=== PATIENT | male | born 1965 | race Caucasian/White ===

== ENCOUNTER 2017-07-05 13:23 | Emergency (ER) | payer BC ==
[~2017-07-05] VITALS: Ht 177.8 cm; Wt 101.2 kg
[2017-07-05 13:26] VITALS: TEMP 36.8; Ht 177.8 cm; Wt 101.2 kg
[2017-07-05] MEDS ORDERED: SODIUM CHLORIDE 0.9% 1000ML 1,000 ML IV STA (13:43)
[2017-07-05] MEDS ORDERED: SODIUM CHLORIDE 0.9% 1000ML 500 ML IV STA (13:43)
--- NOTE | 2017-07-05 13:46 | EMERGENCY ROOM VISIT NOTE ---
History Report prepared by Miller: Nato Espinal Under the Supervision of: Dr. Tim Villalobos M.D. First contact with patient: 13:35 Chief Complaint: GI ASSESSMENT Stated Complaint: BLOOD IN STOOL, NO ENERGY, TIRED History of Present Illness The patient is a 52 year old male who presents to the Emergency Room with complaints of a persistent illness that started a week ago. He says that he started with abdominal pain 2 weeks ago, and then he started feeling fatigued without energy this past week. He adds that he has had some blood in his stool the past 5 days. The patient states that the stool has been brownish with chunks , and there is blood in the toilet as well as with wiping. He says that he has a history of blood in his stool, but it has never been persistent. He adds that he has been falling asleep in the middle of the day. The patient says that he has no pain with bowel movements. The patient notes that he has been unable to eat much due to his abdominal pain. He denies any recent cold symptoms, including cough or congestion. He says that he is not on a blood thinner. The patient notes a history of a cholecystectomy. Source of History: patient Onset: A week ago Position: other (global - illness) Timing: other (persistent) Associated Symptoms: + abdominal pain, + hematochezia, + fatigue, No cough Note: Associated symptoms: Denies old symptoms, congestion. Denies pain with bowel movements. Review of Systems See HPI for pertinent positives & negatives. A total of 10 systems reviewed and were otherwise negative. Past Medical & Surgical Medical Problems: (1) No chronic diseases present Surgical Problems: (1) History of cholecystectomy Family History No pertinent family history Social History Smoking Status: Never Smoker Alcohol Use: none Housing Status: lives with family Occupation Status: employed Current/Historical Medications No Active Prescriptions or Reported Meds Allergies Coded Allergies: No Known Allergies (Unverified , 07/05/17) Physical Exam Vital Signs Date Time Temp Pulse Resp B/P (MAP) Pulse Ox O2 Delivery O2 Flow Rate FiO2 07/05/17 18:42 88 16 137/98 98 07/05/17 17:47 70 16 154/89 98 Room Air 07/05/17 16:12 69 16 151/91 98 Room Air 07/05/17 14:20 52 145/100 97 Room Air 07/05/17 13:26 36.8 68 20 157/99 96 Room Air Physical Exam GENERAL: Patient is in no acute distress. HEENT: No acute trauma, normocephalic atraumatic, mucous membranes moist, no nasal congestion, no scleral icterus. NECK: No stridor, no adenopathy, no meningismus, trachea is midline. LUNGS: Clear to auscultation bilaterally, no wheeze, no rhonchi, breath sounds equal. HEART: Without murmurs gallops or rubs, regular rate and rhythm. ABDOMEN: Mildly tender just to the left of the umbilicus. Soft, bowel sounds positive, no hernias, no peritonitis. EXTREMITIES: No cyanosis or edema, full range of motion of all the joints without pain or difficulty, no signs for acute trauma. RECTAL: No external source for bleeding. Digital exam reveals brown stool which is slightly heme positive. NEUROLOGIC: Oriented x 3, no acute motor or sensory deficits, no focal weakness. SKIN: No rash, no jaundice, no diaphoresis. Medical Decision & Procedures ER Provider Diagnostic Interpretation: CT results as stated below per my review and radiologist interpretation: ABD/PELVIS IV AND ORAL CONT CLINICAL HISTORY: 52 years-old Male presenting with ABDOMINAL PAIN/GI--?DIVERTICULITIS--GIVE PO AND IV CONTRAST. TECHNIQUE: Multidetector CT of the abdomen and pelvis was performed after the administration of intravenous contrast. IV contrast: 118 mL of Optiray 320. A dose lowering technique was used consistent with the principles of ALARA (as low as reasonably achievable). COMPARISON: None. CT DOSE (mGy.cm): The estimated cumulative dose is 775.03 mGy.cm. FINDINGS: Line Person topogram: 2 screw fixation across the right sacroiliac joint and left total hip arthroplasty noted. Lung bases: Lung bases clear. Normal heart size. No pericardial or pleural effusion. 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 No liver lesion. Patent hepatic vasculature. Biliary: No intrahepatic or extrahepatic biliary ductal dilatation. Gallbladder surgically absent. Pancreas: Mild parenchymal atrophy. Spleen: Normal. Adrenal glands: Normal. Kidneys and ureters: Normal. No hydronephrosis. Bladder: Normal. Pelvic organs: Prostate and seminal vesicles normal. Bowel: Normal appendix. No bowel obstruction. Two diverticula are noted at the junction of the descending and sigmoid colon without evidence of associated inflammation. Peritoneal cavity: No free fluid or intraperitoneal gas. Vasculature: Atherosclerosis of the normal caliber abdominal aorta. IVC patent. Lymph nodes: No enlarged lymph nodes in the abdomen or pelvis. Abdominal wall: Normal. Musculoskeletal: Total left hip arthroplasty without evidence of hardware complication. 2 screw fixation across the right sacroiliac joint. Minimal degenerative change of the lumbar spine. IMPRESSION: 1. No acute intra-abdominal pathology. 2. Limited diverticulosis of the junction of the descending and sigmoid colon without evidence of diverticulitis. Electronically signed by: David Duke M.D. 07/05/2017 5:43 PM Dictated Date/Time: 07/05/2017 5:37 PM Laboratory Results 07/05/17 13:49 Red Blood Count 4.89, Mean Corpuscular Volume 83.4, Mean Corpuscular Hemoglobin 29.7, Mean Corpuscular Hemoglobin Concent 35.5, Mean Platelet Volume 9.0, Neutrophils (%) (Auto) 68.4, Lymphocytes (%) (Auto) 22.2, Monocytes (%) (Auto) 6.9, Eosinophils (%) (Auto) 1.9, Basophils (%) (Auto) 0.3, Neutrophils # (Auto) 4.24, Lymphocytes # (Auto) 1.38, Monocytes # (Auto) 0.43, Eosinophils # (Auto) 0.12, Basophils # (Auto) 0.02 07/05/17 13:49 Test 07/05/17 13:49 White Blood Count 6.21 K/uL (4.8-10.8) Red Blood Count 4.89 M/uL (4.7-6.1) Hemoglobin 14.5 g/dL (14.0-18.0) Hematocrit 40.8 % (42-52) Mean Corpuscular Volume 83.4 fL (80-100) Mean Corpuscular Hemoglobin 29.7 pg (25-34) Mean Corpuscular Hemoglobin Concent 35.5 g/dl (32-36) Platelet Count 210 K/uL (130-400) Mean Platelet Volume 9.0 fL (7.4-10.4) Neutrophils (%) (Auto) 68.4 % Lymphocytes (%) (Auto) 22.2 % Monocytes (%) (Auto) 6.9 % Eosinophils (%) (Auto) 1.9 % Basophils (%) (Auto) 0.3 % Neutrophils # (Auto) 4.24 K/uL (1.4-6.5) Lymphocytes # (Auto) 1.38 K/uL (1.2-3.4) Monocytes # (Auto) 0.43 K/uL (0.11-0.59) Eosinophils # (Auto) 0.12 K/uL (0-0.5) Basophils # (Auto) 0.02 K/uL (0-0.2) RDW Standard Deviation 39.7 fL (36.4-46.3) RDW Coefficient of Variation 13.2 % (11.5-14.5) Immature Granulocyte % (Auto) 0.3 % Immature Granulocyte # (Auto) 0.02 K/uL (0.00-0.02) Prothrombin Time 10.7 SECONDS (9.0-12.0) Prothromb Time International Ratio 1.0 (0.9-1.1) Activated Partial Thromboplast Time 28.2 SECONDS (21.0-31.0) Partial Thromboplastin Ratio 1.1 Anion Gap 7.0 mmol/L (3-11) Est Creatinine Clear Calc Drug Dose 105.2 ml/min Estimated GFR () 101.8 Estimated GFR (Non- 87.8 BUN/Creatinine Ratio 6.5 (10-20) Calcium Level 9.5 mg/dl (8.5-10.1) Total Bilirubin 0.4 mg/dl (0.2-1) Aspartate Amino Transf (AST/SGOT) 22 U/L (15-37) Alanine Aminotransferase (ALT/SGPT) 26 U/L (12-78) Alkaline Phosphatase 67 U/L (45-117) Total Protein 7.3 gm/dl (6.4-8.2) Albumin 3.8 gm/dl (3.4-5.0) Globulin 3.5 gm/dl (2.5-4.0) Albumin/Globulin Ratio 1.1 (0.9-2) Lipase 189 U/L (73-393) Thyroid Stimulating Hormone (TSH) 0.924 uIu/ml (0.300-4.500) Laboratory results reviewed by me. Medications Administered Medications (Trade) Dose Ordered Sig/Francisca Route Start Time Stop Time Status Last Admin Dose Admin Sodium Chloride 500 ml @ 999 mls/hr Q31M STAT IV 07/05/17 13:43 07/05/17 14:13 DC 07/05/17 13:43 999 MLS/HR Sodium Chloride 1,000 ml @ 200 mls/hr Q5H STAT IV 07/05/17 13:43 07/05/17 18:42 DC 07/05/17 13:43 200 MLS/HR ED Course 1335: The patient was evaluated in room A11B. A complete history and physical exam was performed. 1343: Ordered NSS 1000 ml @ 200 mls/hr IV, NSS 500 ml @ 999 mls/hr IV. 1802: Reevaluated the patient and he got a little nauseated and sweaty, but he says that he has not eaten since yesterday. He will eat and I will check back on him after. 1830: I reevaluated the patient and he is ready to go home. The patient verbally expressed understanding and agreement of the treatment plan. The patient will be discharged. Medical Decision Differential diagnosis includes but is not limited to hemorrhoidal or rectal bleeding, lower GI bleeding, upper GI bleeding, anemia, electrolyte imbalance, intestinal mass. There is no leukocytosis or concerning anemia. No significant electrolyte abnormality, kidney failure or hepatitis. No evidence for pancreatitis. The patient appears to be in a euthyroid state. Abdominal and pelvis CT does not show any diverticulitis or intestinal mass. No bowel obstruction. On exam, there were no hemorrhoids present externally. Rectal exam revealed brown stool that was trace heme positive. The patient presents with rectal bleeding, he feels fatigued. At this point, no concerning findings have been noted. The patient was referred to GI, he does need a colonoscopy. He understands. He was encouraged to return for worsening symptoms, heavier bleeding or fever. Medication Reconcilliation Current Medication List: was personally reviewed by me Blood Pressure Screening Patient's blood pressure: Elevated blood pressure Blood pressure disposition: Elevated BP felt to be situational Impression Primary Impression: Rectal bleeding Scribe Attestation The scribe's documentation has been prepared under my direction and personally reviewed by me in its entirety. I confirm that the note above accurately reflects all work, treatment, procedures, and medical decision making performed by me. Departure Information Dispostion Home / Self-Care Prescriptions No Active Prescriptions or Reported Meds Referrals No Doctor, Assigned (PCP) Faith Puente M.D. Patient Instructions My [facility] Additional Instructions talk with a GI doctor for an appt and possible colonoscopy return for fever, worsening pain, vomiting or heavier bleeding lab testing and imaging was ok
[2017-07-05 14:03] LABS: BASO % 0.3 %; BASO ABS # 0.02 K/uL (0-0.2); COMPLETE YES; EOS % 1.9 %; HEMATOCRIT 40.8 % (42-52); IG% 0.3 %; LYMPH % 22.2 %; LYMPH ABS # 1.38 K/uL (1.2-3.4); MEAN CELL VOLUME 83.4 fL (80-100); MEAN CORPUSCULAR HEMOGLOBIN 29.7 pg (25-34); MEAN CORPUSCULAR HGB CONC 35.5 g/dl (32-36); MONO % 6.9 %; NEUT % 68.4 %; PLATELET COUNT 210 K/uL (130-400); RED BLOOD COUNT 4.89 M/uL (4.7-6.1); WHITE BLOOD COUNT 6.21 K/uL (4.8-10.8)
[2017-07-05 14:13] LABS: PARTIAL THROMBOPLASTIN RATIO 1.1; PROTHROMBIN TIME (PATIENT) 10.7 SECONDS (9.0-12.0)
[2017-07-05 14:21] LABS: BUN/CREATININE RATIO 6.5 (10-20); CALCIUM 9.5 mg/dl (8.5-10.1); CREATININE 0.99 mg/dl (0.60-1.40); POTASSIUM 3.7 mmol/L (3.5-5.1)
[2017-07-05] MEDS ORDERED: OPTIRAY 320 IV PRN (14:30)
[2017-07-05 14:32] LABS: ALB/GLOB RATIO 1.1 (0.9-2); THYROID STIMULATING HORMONE 0.924 uIu/ml (0.300-4.500)
--- NOTE | 2017-07-05 17:44 | DIAGNOSTIC IMAGING REPORT ---
ABD/PELVIS IV AND ORAL CONT CLINICAL HISTORY: 52 years-old Male presenting with ABDOMINAL PAIN/GI--?DIVERTICULITIS--GIVE PO AND IV CONTRAST. TECHNIQUE: Multidetector CT of the abdomen and pelvis was performed after the administration of intravenous contrast. IV contrast: 118 mL of Optiray 320. A dose lowering technique was used consistent with the principles of ALARA (as low as reasonably achievable). COMPARISON: None. CT DOSE (mGy.cm): The estimated cumulative dose is 775.03 mGy.cm. FINDINGS: Blood Coordinator topogram: 2 screw fixation across the right sacroiliac joint and left total hip arthroplasty noted. Lung bases: Lung bases clear. Normal heart size. No pericardial or pleural effusion. 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 No liver lesion. Patent hepatic vasculature. Biliary: No intrahepatic or extrahepatic biliary ductal dilatation. Gallbladder surgically absent. Pancreas: Mild parenchymal atrophy. Spleen: Normal. Adrenal glands: Normal. Kidneys and ureters: Normal. No hydronephrosis. Bladder: Normal. Pelvic organs: Prostate and seminal vesicles normal. Bowel: Normal appendix. No bowel obstruction. Two diverticula are noted at the junction of the descending and sigmoid colon without evidence of associated inflammation. Peritoneal cavity: No free fluid or intraperitoneal gas. Vasculature: Atherosclerosis of the normal caliber abdominal aorta. IVC patent. Lymph nodes: No enlarged lymph nodes in the abdomen or pelvis. Abdominal wall: Normal. Musculoskeletal: Total left hip arthroplasty without evidence of hardware complication. 2 screw fixation across the right sacroiliac joint. Minimal degenerative change of the lumbar spine. IMPRESSION: 1. No acute intra-abdominal pathology. 2. Limited diverticulosis of the junction of the descending and sigmoid colon without evidence of diverticulitis. Electronically signed by: David Duke M.D. 07/05/2017 5:43 PM Dictated Date/Time: 07/05/2017 5:37 PM
[2017-07-05 18:42] VITALS: BP 137/98; PULSE 88; O2SAT 98
== END 2017-07-05 18:42 | disposition home or self-care (01) ==
LOC: C.EDB 13:25 → C.EDA 18:42
DX: K62.5 Hemorrhage of anus and rectum (principal); Z90.49 Acquired absence of other specified parts of digestive tract